=== PATIENT | female | born 1960 | race African-American/Black ===

== ENCOUNTER 2023-01-04 11:36 | Emergency (ER) | payer MEDICAID, OTHER ==
[~2023-01-04] VITALS: Ht 154.9 cm; Wt 56.0 kg
[2023-01-04] MEDS ORDERED: KETOROLAC 30MG/ML VIAL IM ONE (16:30)
[2023-01-04 16:42] VITALS: BP 147/89
[2023-01-04] MEDS ORDERED: ACET-2708 MT (18:11)
== END 2023-01-04 18:30 | disposition home or self-care (01) ==
LOC: ER 12:00
DX: M54.50 Low back pain, unspecified (principal); S32.009A Unspecified fracture of unspecified lumbar vertebra, initial encounter for closed fracture; X58.XXXA Exposure to other specified factors, initial encounter; Y93.89 Activity, other specified; Y92.89 Other specified places as the place of occurrence of the external cause; Y99.8 Other external cause status; F41.9 Anxiety disorder, unspecified; I10 Essential (primary) hypertension; Z98.890 Other specified postprocedural states
CPT/HCPCS: 72128; 72131; 72170; 72220; 96372; 99285; J1885; Z7610

== ENCOUNTER 2025-06-21 11:25 | Inpatient (IN) | payer MEDICARE, MEDICAID ==
[~2025-06-21] VITALS: Ht 160 cm; Wt 59.9 kg
[~2025-06-21 11:25] MED LIST: ACET-2708 MT
[2025-06-21 11:34] VITALS: O2SAT 99
[2025-06-21 11:51] LABS: BASOPHILS % 0.4 % (0.0-2.0); EOSINOPHILS % 0.5 % (0.0-5.0); HEMATOCRIT. 37.3 % (36.0-48.0); HEMOGLOBIN. 12.5 g/dL (12.0-16.0); LYMPHOCYTES % 24.0 % (20.0-50.0); MEAN PLATELET VOLUME 9.9 fl (7.4-10.4); MONOCYTES % 4.2 % (2.0-8.0); NEUTROPHILS % 70.9 % (40.0-76.0); PLATELET 201 x1000/uL (130-400); RED BLOOD CELL COUNT 4.10 mill/uL (4.2-5.4); RED CELL DISTRIBUTION WIDTH 14.8 % (11.6-14.6)
[2025-06-21 12:10] LABS: CREATININE 1.0 mg/dL (0.6-1.0); UREA NITROGEN BLOOD 14 mg/dL (9-23)
[2025-06-21 12:12] LABS: ASPARTATE AMINOTRANSFERASE 19 IU/L (<34); BILIRUBIN DIRECT 0.1 mg/dL (<=3.0); BILIRUBIN TOTAL 0.6 mg/dL (0.1-1.0); PROTEIN TOTAL 7.0 g/dL (6.0-8.3)
[2025-06-21 12:51] LABS: TROPONIN I HIGH SENSITIVITY 37 ng/L (3.0-34)
[2025-06-21] MEDS: ASPIRIN 81MG TABLET PO ONE (16:30)
[2025-06-21] MEDS ORDERED: IPRATROPIUM/ALBUTEROL 0.5-3(2.5)MG/3ML NEB HHN PRN (16:45)
[2025-06-21] MEDS ORDERED: CLONIDINE 0.1MG TABLET PO PRN (16:45)
[2025-06-21] MEDS ORDERED: ACETAMINOPHEN 325MG TABLET PO PRN (16:45)
[2025-06-21] MEDS ORDERED: ONDANSETRON HCL 4MG/2ML INJ IV PRN (16:45)
[2025-06-21] MEDS ORDERED: ENOXAPARIN 40MG/0.4ML SYR SUBCUT SCH (17:00)
[2025-06-21] MEDS ORDERED: AMLO5TAB88 PO (17:01)
[2025-06-21] MEDS ORDERED: LOSA50TA41 PO (17:01)
[2025-06-21] MEDS ORDERED: SIMV-43 PO (17:01)
[2025-06-21] MEDS ORDERED: DEXTROSE 50% WATER 50ML SYRINGE IV PRN (17:30)
[2025-06-21] MEDS ORDERED: AZITHROMYCIN 500MG/250ML 250 ML IV SCH (17:30)
[2025-06-21] MEDS ORDERED: BENZONATATE 100MG CAPSULE PO SCH (18:00)
[2025-06-21 20:00] VITALS: BP 142/92; PULSE 72; RESP 20; TEMP 36.6; O2SAT 98
[2025-06-21 20:40] VITALS: BP 142/92; PULSE 72; RESP 20; TEMP 36.5848; TEMP 36.6; O2SAT 98
[2025-06-21] MEDS: INSULIN LISPRO 100 UNITS/ML SUBCUT SCH (21:00)
[2025-06-21] MEDS: BLOOD SUGAR DIAGNOSTIC STRIP TEST SCH (21:00)
[2025-06-21] MEDS: PANTOPRAZOLE 40MG DR TABLET PO SCH (23:27)
[2025-06-21] MEDS: BENZONATATE 100MG CAPSULE PO SCH (23:27)
[2025-06-21] MEDS: ACETAMINOPHEN 325MG TABLET PO PRN (23:27)
[2025-06-21] MEDS: AZITHROMYCIN 500MG/250ML 250 ML IV SCH (23:29)
[2025-06-21] MEDS: SODIUM CHLORIDE 0.9% 1,000 ML IV SCH (23:29)
[2025-06-21] MEDS: ENOXAPARIN 40MG/0.4ML SYR SUBCUT SCH (23:29)
[2025-06-22] VITALS: BP 125/70; PULSE 75; RESP 19; TEMP 36.1; O2SAT 99
[2025-06-22 04:00] VITALS: BP 128/70; PULSE 68; RESP 19; TEMP 36.8; O2SAT 96
[2025-06-22 05:10] LABS: *AMPHETAMINES SCREEN URINE NEGATIVE (NEGATIVE); *BARBITURATES SCREEN URINE NEGATIVE (NEGATIVE); *BENZODIAZEPINES SCREEN URINE NEGATIVE (NEGATIVE); *COCAINE SCREEN URINE NEGATIVE (NEGATIVE)
[2025-06-22 05:11] LABS: CANNABINOID URINE SCREEN NEGATIVE (NEGATIVE); ECSTASY MDMA SCREEN URINE NEGATIVE (NEGATIVE); METHADONE URINE SCREEN NEGATIVE (NEGATIVE); OPIATES URINE SCREEN NEGATIVE (NEGATIVE); PHENCYCLIDINE URINE SCREEN NEGATIVE (NEGATIVE)
[2025-06-22 07:24] LABS: BASOPHILS % 0.7 % (0.0-2.0); EOSINOPHILS % 1.3 % (0.0-5.0); HEMATOCRIT. 34.4 % (36.0-48.0); HEMOGLOBIN. 11.5 g/dL (12.0-16.0); LYMPHOCYTES % 36.6 % (20.0-50.0); MEAN PLATELET VOLUME 10.2 fl (7.4-10.4); MONOCYTES % 5.7 % (2.0-8.0); NEUTROPHILS % 55.7 % (40.0-76.0); PLATELET 175 x1000/uL (130-400); RED BLOOD CELL COUNT 3.79 mill/uL (4.2-5.4); RED CELL DISTRIBUTION WIDTH 14.9 % (11.6-14.6)
[2025-06-22 07:26] LABS: CREATININE 1.1 mg/dL (0.6-1.0)
[2025-06-22 07:27] LABS: LDL CHOLESTEROL 74 mg/dL (5-100); TRIGLYCERIDE 106 mg/dL (0-150); UREA NITROGEN BLOOD 20 mg/dL (9-23)
[2025-06-22 07:32] LABS: T4 FREE 1.03 ng/dL (0.89-1.76)
[2025-06-22 08:00] VITALS: BP 129/65; PULSE 74; RESP 20; TEMP 36.2; O2SAT 96
[2025-06-22 08:40] LABS: HEPATITIS C AB NON REACTIVE (Neg) (Negative)
[2025-06-22] MEDS: LOSARTAN 50 MG TABLET PO SCH (09:00)
[2025-06-22] MEDS: ASPIRIN 81MG TABLET PO SCH (09:22)
[2025-06-22] MEDS: AMLODIPINE 5MG TABLET PO SCH (09:23)
[2025-06-22 09:27] LABS: TROPONIN I HIGH SENSITIVITY 38 ng/L (3.0-34)
[2025-06-22 12:00] VITALS: BP 133/62; PULSE 74; RESP 18; TEMP 36.2; O2SAT 97
[2025-06-22 16:00] VITALS: BP 128/74; PULSE 72; RESP 20; TEMP 36; O2SAT 96
[2025-06-22] MEDS: GUAIFENESIN 200MG 200 MG TABLET PO SCH (18:45)
[2025-06-22 20:00] VITALS: BP 121/80; PULSE 69; RESP 18; TEMP 36.7; O2SAT 97
[2025-06-22 20:28] LABS: INFLUENZA TYPE A Presumptive Negative (Pres. Neg.); INFLUENZA TYPE B Presumptive Negative (Pres. Neg.)
[2025-06-22 20:29] LABS: RESPIRATORY SYNCYTIAL VIRUS Not Detected (Not Detectd)
[2025-06-22] MEDS: AZITHROMYCIN 500MG/250ML 250 ML IV SCH (21:54)
[2025-06-22] MEDS: ENOXAPARIN 40MG/0.4ML SYR SUBCUT SCH (21:55)
[2025-06-23] VITALS: BP 117/74; PULSE 70; RESP 20; TEMP 36.6; O2SAT 96
[2025-06-23 04:00] VITALS: BP 122/78; PULSE 68; RESP 18; TEMP 36.7; O2SAT 95
[2025-06-23 06:19] LABS: PLATELET 172 x1000/uL (130-400); RED BLOOD CELL COUNT 3.96 mill/uL (4.2-5.4); RED CELL DISTRIBUTION WIDTH 14.7 % (11.6-14.6)
[2025-06-23 06:30] LABS: CREATININE 1.0 mg/dL (0.6-1.0); UREA NITROGEN BLOOD 20 mg/dL (9-23)
[2025-06-23 08:00] VITALS: BP 133/98; PULSE 71; RESP 18; TEMP 36; O2SAT 100
[2025-06-23 12:00] VITALS: BP 133/65; PULSE 72; RESP 18; TEMP 36.5; O2SAT 100
[2025-06-23] MEDS ORDERED: BENZ100C86 MT (12:46)
[2025-06-23 13:52] VITALS: BP 133/65; PULSE 72; RESP 18; TEMP 97.7
[2025-06-23 16:00] VITALS: BP 125/78; PULSE 75; RESP 18; TEMP 36.6; O2SAT 100
[2025-06-23] MEDS ORDERED: AZITHROMYCIN 500 MG TABLET PO SCH (21:00)
== END 2025-06-23 16:28 | disposition home health service (06) | DRG 205 ==
LOC: ER 11:25 → ENRESERV 19:02 → 8WST 19:59
PROVIDERS: ADMIT Internal Medicine; ATTEND Internal Medicine
DX: M94.0 Chondrocostal junction syndrome [Tietze] (principal); I21.A1 Myocardial infarction type 2; E11.9 Type 2 diabetes mellitus without complications; F41.9 Anxiety disorder, unspecified; J06.9 Acute upper respiratory infection, unspecified; I10 Essential (primary) hypertension; Z79.899 Other long term (current) drug therapy
CPT/HCPCS: 36415; 71045; 80048; 80061; 80076; 80305; 82962; 83036; 83880; 84439; 84443; 84484; 85025; 85027; 86705; 87340; 87420; 87804; 93005; 93970; 99291; J0456; J1650; J1815